=== PATIENT | female | born 2000 | race Caucasian/White ===

== ENCOUNTER 2021-02-05 03:17 | Emergency (ER) | payer SELFPAY ==
[~2021-02-05] VITALS: Ht 172.7 cm; Wt 81.6 kg
[2021-02-05 03:17] VITALS: BP_SYST 112
[2021-02-05 04:18] LABS: BASOPHILS # (AUTO) 0.1 K/uL (0.0-0.2); BASOPHILS % (AUTO) 2.1 % (0.0-2.0); EOSINOPHILS # (AUTO) 0.1 K/uL (0.0-0.4); EOSINOPHILS % (AUTO) 3.1 % (0.0-4.0); HEMATOCRIT 36.9 % (36-48); HEMOGLOBIN 12.5 g/dL (12.0-16.0); LYMPHOCYTES # (AUTO) 0.5 K/uL (1.0-5.5); LYMPHOCYTES % (AUTO) 13.3 % (20.5-51.5); MEAN CORPUSCULAR HEMOGLOBIN 32 pg (27-31); MEAN CORPUSCULAR HGB CONC 34 % (32-36); MEAN CORPUSCULAR VOLUME 93 fL (79.0-98.0); MONOCYTES # (AUTO) 0.2 K/uL (0.0-1.0); MONOCYTES % (AUTO) 4.4 % (1.7-9.3); NEUTROPHILS % (AUTO) 77.1 % (40.0-70.0); PLATELET COUNT (AUTO) 180 K/uL (130-430); RED BLOOD CELL COUNT(AUTO) 3.96 MIL/uL (4.2-6.2); RED CELL DISTRIBUTION WIDTH 12.7 % (9.0-15.0)
[2021-02-05] MEDS: NACL 0.9% 1,000 ML IV ONE (04:22)
[2021-02-05] MEDS: PANTOPRAZOLE SODIUM 40 MG/VIAL (PROTONIX) IVP ONE (04:29)
[2021-02-05] MEDS: DIPHENHYDRAMINE INJ 50 MG/ML VIAL IVP ONE (04:31)
[2021-02-05] MEDS ORDERED: ED NON STOCK ORDER 1 EA MISC IV ONE ×2 (06:30→07:15)
[2021-02-05 06:36] LABS: SODIUM SERUM 140 mmol/L (136-145)
[2021-02-05 06:39] LABS: CHLORIDE 104 mmol/L (98-107); POTASSIUM 2.9 mmol/L (3.5-5.1)
[2021-02-05 06:40] LABS: ANION GAP 8 (5-15); CALCIUM 9.1 mg/dL (8.4-11.0); GLUCOSE 129 mg/dL (70-99); UREA NITROGEN, BLOOD 11 mg/dL (8-21)
[2021-02-05 06:41] LABS: GFR AFRICAN AMERICAN 116 mL/min (>90); TOTAL BILIRUBIN 0.5 mg/dL (0.0-1.0)
[2021-02-05 06:42] LABS: ALANINE AMINOTRANSFERASE 38 U/L (12-78); ALBUMIN 4.4 g/dL (3.4-4.8); ASPARTATE AMINOTRANSFERASE 21 U/L (10-37)
[2021-02-05 06:43] LABS: ACETAMINOPHEN 33 ug/mL (1-30)
[2021-02-05 06:44] LABS: ALCOHOL, BLOOD < 3 mg/dL (<10)
[2021-02-05] MEDS ORDERED: ACETYLCYSTEINE IV 6000 MG/30 ML VIAL IV ONE (06:56)
[2021-02-05 07:39] LABS: BILIRUBIN,URINE NEGATIVE (NEGATIVE); BLOOD, URINE 3+ (NEGATIVE); CLARITY/URINE SL CLOUDY (CLEAR); COLOR,URINE BROWN (YELLOW); GLUCOSE,URINE NEGATIVE (NEGATIVE); KETONES,URINE 1+ (NEGATIVE); LEUKOCYTE ESTERASE ,URINE TRACE (NEGATIVE); NITRITE, URINE NEGATIVE (NEGATIVE); PH,URINE 5.5 (5.0-8.0); PROTEIN URINE 1+ (NEGATIVE)
[2021-02-05] MEDS: ONDANSETRON HCL 4 MG/2 ML VIAL IVP ONE (08:04)
[2021-02-05] MEDS: D5W IV ONE ×2 (08:12→09:45)
[2021-02-05] MEDS: ACETYLCYSTEINE IV ONE ×2 (08:12→09:45)
[2021-02-05 08:15] LABS: BARBITURATE, URINE NEGATIVE (NEG <=200); BENZODIAZEPINE, URINE POSITIVE (NEG <=150); CANNABINOID, URINE POSITIVE (NEG <=50); COCAINE, URINE NEGATIVE (NEG <=150); METHAMPHETAMINES SCREEN,URINE NEGATIVE (NEG <=500); OPIATE, URINE NEGATIVE (NEG <=100); PHENCYCLIDINE SCREEN,URINE NEGATIVE (NEG <=25); UR TRICYCLIC ANTIDEPRESSANTS NEGATIVE (NEG <=300); URINE AMPHETAMINE NEGATIVE (NEG <=500); URINE METHADONE NEGATIVE (NEG <=200); URINE OXYCODONE SCREEN NEGATIVE (NEG <=100); URINE PROPOXYPHENE SCREEN NEGATIVE (NEG <=300)
[2021-02-05 08:21] LABS: ANION GAP 9 (5-15); CALCIUM 7.7 mg/dL (8.4-11.0); CHLORIDE 105 mmol/L (98-107); CREATININE 0.75 mg/dL (0.55-1.30); GLUCOSE 111 mg/dL (70-99); POTASSIUM 3.3 mmol/L (3.5-5.1); SODIUM SERUM 139 mmol/L (136-145); UREA NITROGEN, BLOOD 9 mg/dL (8-21)
[2021-02-05 08:23] LABS: GFR AFRICAN AMERICAN 125 mL/min (>90)
[2021-02-05 08:25] LABS: BACTERIA,URINE RARE /HPF (None Seen); RBC,URINE >100 /HPF (0-3)
[2021-02-05 08:25] LABS: ALANINE AMINOTRANSFERASE 38 U/L (12-78); ALBUMIN 3.7 g/dL (3.4-4.8); AMYLASE 37 U/L (0-100); ASPARTATE AMINOTRANSFERASE 24 U/L (10-37); LIPASE 41 U/L (73-393); TOTAL BILIRUBIN 0.4 mg/dL (0.0-1.0)
[2021-02-05] MEDS: MORPHINE 2 MG/ML INJ. SYRINGE IVP ONE (11:33)
[2021-02-05 11:51] LABS: ACETAMINOPHEN 18 ug/mL (1-30)
[2021-02-05 12:42] LABS: ALBUMIN 3.6 g/dL (3.4-4.8); BILIRUBIN,DIRECT 0.1 mg/dL (0.0-0.3); TOTAL BILIRUBIN 0.6 mg/dL (0.0-1.0)
[2021-02-05 13:05] VITALS: BP_SYST 110
== END 2021-02-05 13:18 | disposition home or self-care (01) ==
LOC: SED 03:17
DX: T39.1X1A Poisoning by 4-Aminophenol derivatives, accidental (unintentional), initial encounter (principal); I49.9 Cardiac arrhythmia, unspecified; Y92.89 Other specified places as the place of occurrence of the external cause
CPT/HCPCS: 36415; 80053; 80076; 80307; 81000; 81025; 82150; 83690; 85025; 93005; 96361; 96365; 96366; 96375; 99284; C9113; G0480; G0481; G0482; J0132; J1200; J2270; J2405; J7030; J7060 ×2